=== PATIENT | female | born 1985 | race African-American/Black ===

== ENCOUNTER 2018-12-07 19:51 | Emergency (ER) | payer OTHER, SELFPAY ==
[2018-12-07] MEDS ORDERED: Penicillin V Potassium 250 MG TAB ONE (20:09)
[2018-12-07] MEDS ORDERED: Ibuprofen 800 MG TAB ONE (20:09)
== END 2018-12-07 20:21 | disposition home or self-care (01) ==
LOC: MADERS 19:51
DX: K04.7 Periapical abscess without sinus (principal); K02.9 Dental caries, unspecified; F17.210 Nicotine dependence, cigarettes, uncomplicated
CPT/HCPCS: 99282